=== PATIENT | male | born 1980 | race Caucasian/White ===

== ENCOUNTER 2016-12-10 19:28 | Emergency (ER) | payer OTHER ==
[~2016-12-10] VITALS: Ht 175.3 cm; Wt 74.0 kg
[~2016-12-10 19:28] MED LIST: PRIL20CA PO; TRAM50TA PO; VENL75 PO; Z.0.NO CURRENT MEDS
[2016-12-10 19:32] VITALS: BP 120/72; PULSE 88; RESP 16; TEMP 98.2; O2SAT 97
[2016-12-10] MEDS ORDERED: AMPH1TAB40 PO (20:07)
[2016-12-10] MEDS ORDERED: PERC5TAB12 PO (20:08)
[2016-12-10] MEDS ORDERED: SODIUM CHLOR 0.9% 1000 ML INJ 1,000 ML IV SCH (20:24)
[2016-12-10] MEDS ORDERED: ONDANSETRON HCL 4 MG/2 ML VIAL IVP ONE (20:30)
[2016-12-10] MEDS ORDERED: SODIUM CHLORIDE 0.9% FLUSH 5 ML FLUSH IVF PRN (20:30)
[2016-12-10] MEDS ORDERED: MORPHINE SULFATE 4 MG/ML INJ IV PUSH ONE (20:30)
[2016-12-10] MEDS ORDERED: LIDOCAINE HCL 2% JELLY 5 ML SYRINGE TOPICAL ONE (20:30)
[2016-12-10 20:32] VITALS: RESP 16; O2SAT 98
[2016-12-10 20:58] LABS: AUTOMATED NEUTROPHIL # 3.7 TH/MM3 (1.8-7.7); BASOPHIL # 0.1 TH/MM3 (0-0.2); BASOPHIL % 0.9 % (0.0-2.0); EOSINOPHIL # 0.2 TH/MM3 (0-0.4); EOSINOPHIL % 2.4 % (0.0-4.0); HEMO FLAGS DIFF FINAL; LYMPH % 27.5 % (9.0-44.0); LYMPHOCYTE # 1.8 TH/MM3 (1.0-4.8); MEAN CELL VOLUME 87.4 FL (80.0-100.0); MEAN CORPUSCULAR HGB CONC 34.3 % (32.0-36.0); MONO % 12.5 % (0.0-8.0); NEUT % 56.7 % (16.0-70.0); PLATELET COUNT 182 TH/MM3 (150-450); RED BLOOD COUNT 4.35 MIL/MM3 (4.50-5.90); RED CELL DISTRIBUTION WIDTH 13.2 % (11.6-17.2); WHITE BLOOD COUNT 6.6 TH/MM3 (4.0-11.0)
[2016-12-10] MEDS ORDERED: IOHEXOL 350 MG/ML 10 ML VIAL (for RAD DIAG) IV ONE (20:59)
[2016-12-10 21:09] LABS: APTT (PATIENT) 29.4 SEC (24.3-30.1); INTERNATIONAL NORMALIZED RATIO 0.9 RATIO; PROTHROMBIN TIME - PATIENT 10.3 SEC (9.8-11.6)
[2016-12-10 21:16] VITALS: RESP 16
--- NOTE | 2016-12-10 21:18 | RADRPT ---
EXAM DATE/TIME: 12/10/2016 20:53 [place] COMPARISON: No previous studies available for comparison. INDICATIONS : Lower abdominal pain. IV CONTRAST: 100 cc Omnipaque 350 (iohexol) IV ORAL CONTRAST: No oral contrast ingested. RADIATION DOSE: 6.66 CTDIvol (mGy) MEDICAL HISTORY : Renal calculi. SURGICAL HISTORY : None. ENCOUNTER: Initial ACUITY: 1 day PAIN SCALE: 5/10 LOCATION: lower quadrant abdomen TECHNIQUE: Volumetric scanning of the abdomen and pelvis was performed. Using automated exposure control and adjustment of the mA and/or kV according to patient size, radiation dose was kept as low as reasonably achievable to obtain optimal diagnostic quality images. FINDINGS: LOWER LUNGS: The visualized lower lungs are clear. LIVER: Homogeneous density without lesion. There is no dilation of the biliary tree. No calcifi ed gallstones. SPLEEN: Normal size without lesion. PANCREAS: Within normal limits. KIDNEYS: Normal in size and shape. There is no mass, stone or hydronephrosis. ADRENAL GLANDS: Within normal limits. VASCULAR: There is no aortic aneurysm. BOWEL/MESENTERY: The stomach, small bowel, and colon demonstrate no acute abnormality. There is no free intraperitoneal air or fluid. ABDOMINAL WALL: Within normal limits. RETROPERITONEUM: There is no lymphadenopathy. BLADDER: No wall thickening or mass. REPRODUCTIVE: Within normal limits. INGUINAL: There is no lymphadenopathy or hernia. MUSCULOSKELETAL: Within normal limits for patient age. CONCLUSION: Negative for acute process. I do not see renal stones. I do not see an etiology for patient's abdominal pain. Pascual Juarez MD FACR on December 10, 2016 at 21:15 Board Certified Radiologist. This report was verified electronically.
[2016-12-10 21:34] LABS: ANION GAP 7 MEQ/L (5-15); AST (GOT) 12 U/L (15-37); BICARBONATE 25.4 MEQ/L (21.0-32.0); BLOOD UREA NITROGEN 12 MG/DL (7-18); CHLORIDE 107 MEQ/L (98-107); GLOMERULAR FILTRATION RATE 115 ML/MIN (>89); POTASSIUM 4.1 MEQ/L (3.5-5.1); SODIUM (NA) 139 MEQ/L (136-145)
[2016-12-10 21:37] LABS: ALKALINE PHOSPHATASE 91 U/L (45-117); ALT (GPT) 21 U/L (12-78); TOTAL BILIRUBIN ADULT 0.3 MG/DL (0.2-1.0)
[2016-12-10] MEDS ORDERED: COLA100C3 PO (22:08)
[2016-12-10] MEDS ORDERED: LIDO2GEL11 TOPICAL (22:08)
--- NOTE | 2016-12-10 22:09 | PD ---
HPI Chief Complaint: GI Complaint Time Seen by Provider: 20:03 Travel History International Travel<30 days: No Contact w/Intl Traveler<30days: No Traveled to known affect area: No History of Present Illness HPI Patient is a 36 year old male who comes in complaining of abdominal pain and hemorrhoid pain. He has an appointment with his doctor on Wednesday, but says he couldn't stand the pain, so he came in. He says he has had the hemorrhoids for a while, but they feels that they've been getting bigger, more painful, has been bleeding more. He says he has been feeling constipated, and has not had a bowel movement in a few days. He says he has small bowel movement yesterday that started out hard and then was soft. He denies nausea or vomiting. He has been taking prune juice and magnesium to help him have a bowel movement. He denies fever or chills. PFSH Past Medical History Diminished Hearing: No Kidney Stones: Yes Musculoskeletal: Yes (BACK AND NECK PROBLEMS) Immunizations Current: Yes Tetanus Vaccination: < 5 Years Influenza Vaccination: No Past Surgical History Surgical History: No Previous Surgery Social History Alcohol Use: No Tobacco Use: Yes (1 PACK EVERY 2-3 DAYS.) Substance Use: No Allergies-Medications (Allergen,Severity, Reaction): Coded Allergies: No Known Allergies (Verified , 12/10/16) Reported Meds & Prescriptions Reported Meds & Active Scripts Active Colace (Docusate Sodium) 100 Mg Cap 100 Mg PO BID PRN Lidocaine Topical (Lidocaine HCl) 2 % Jel 1 Applic TOPICAL ONCE Reported Percocet (Oxycodone-Acetaminophen) 5-325 mg Tab 1 Tab PO Q4H PRN Adderall (Amphetamine-Dextroamphetamine) 7.5 Mg Tab 7.5 Mg PO BID Avoid late evening doses. Space doses at least 4 to 6 hours if more than once/day dosing. Review of Systems Except as stated in HPI: all other systems reviewed are Neg General / Constitutional: No: Fever, Chills HENT: No: Headaches, Lightheadedness Cardiovascular: No: Chest Pain or Discomfort Respiratory: No: Shortness of Breath Gastrointestinal: Positive: Abdominal Pain, Constipation, No: Nausea, Vomiting Skin: No Rash, No Change in Pigmentation Physical Exam Narrative GENERAL: Awake and alert in no acute distress. SKIN: Warm and dry. HEAD: Atraumatic. Normocephalic. EYES: Pupils equal and round. No scleral icterus. No injection or drainage. ENT: Mucous membranes pink and moist. NECK: Trachea midline. No JVD. CARDIOVASCULAR: Regular rate and rhythm. No murmur appreciated. RESPIRATORY: No accessory muscle use. Clear to auscultation. Breath sounds equal bilaterally. GASTROINTESTINAL: Abdomen soft, non-tender, nondistended. Hepatic and splenic margins not palpable. RECTAL: large, pink, soft hemorrhoids. No active bleeding. MUSCULOSKELETAL: No obvious deformities. No clubbing. No cyanosis. No edema. NEUROLOGICAL: Awake and alert. No obvious cranial nerve deficits. Motor grossly within normal limits. Normal speech. PSYCHIATRIC: Appropriate mood and affect; insight and judgment normal. Data Data Last Documented VS Vital Signs Date Time Temp Pulse Resp B/P Pulse Ox O2 Delivery O2 Flow Rate FiO2 12/10/16 21:16 16 12/10/16 20:32 98 Room Air 12/10/16 19:32 98.2 88 120/72 Orders Complete Blood Count With Diff (12/10/16 20:24) Comprehensive Metabolic Panel (12/10/16 20:24) Lipase (12/10/16 20:24) Prothrombin Time / Inr (Pt) (12/10/16 20:24) Act Partial Throm Time (Ptt) (12/10/16 20:24) Ct Abd/Pel W Iv Contrast(Rout) (12/10/16 20:24) Iv Access Insert/Monitor (12/10/16 20:24) Ecg Monitoring (12/10/16 20:24) Oximetry (12/10/16 20:24) Morphine Inj (Morphine Inj) (12/10/16 20:30) Ondansetron Inj (Zofran Inj) (12/10/16 20:30) Sodium Chlor 0.9% 1000 Ml Inj (Ns 1000 M (12/10/16 20:24) Sodium Chloride 0.9% Flush (Ns Flush) (12/10/16 20:30) Lidocaine 2% Jelly (Xylocaine 2% Jelly) (12/10/16 20:30) Iohexol 350 Inj (Omnipaque 350 Inj) (12/10/16 20:59) Labs Laboratory Tests Test 12/10/16 20:30 White Blood Count 6.6 TH/MM3 Red Blood Count 4.35 MIL/MM3 Hemoglobin 13.0 GM/DL Hematocrit 38.0 % Mean Corpuscular Volume 87.4 FL Mean Corpuscular Hemoglobin 30.0 PG Mean Corpuscular Hemoglobin 34.3 % Concent Red Cell Distribution Width 13.2 % Platelet Count 182 TH/MM3 Mean Platelet Volume 7.7 FL Neutrophils (%) (Auto) 56.7 % Lymphocytes (%) (Auto) 27.5 % Monocytes (%) (Auto) 12.5 % Eosinophils (%) (Auto) 2.4 % Basophils (%) (Auto) 0.9 % Neutrophils # (Auto) 3.7 TH/MM3 Lymphocytes # (Auto) 1.8 TH/MM3 Monocytes # (Auto) 0.8 TH/MM3 Eosinophils # (Auto) 0.2 TH/MM3 Basophils # (Auto) 0.1 TH/MM3 CBC Comment DIFF FINAL Differential Comment Prothrombin Time 10.3 SEC Prothromb Time International 0.9 RATIO Ratio Activated Partial 29.4 SEC Thromboplast Time Sodium Level 139 MEQ/L Potassium Level 4.1 MEQ/L Chloride Level 107 MEQ/L Carbon Dioxide Level 25.4 MEQ/L Anion Gap 7 MEQ/L Blood Urea Nitrogen 12 MG/DL Creatinine 0.76 MG/DL Estimat Glomerular Filtration 115 ML/MIN Rate Random Glucose 85 MG/DL Calcium Level 8.3 MG/DL Total Bilirubin 0.3 MG/DL Aspartate Amino Transf 12 U/L (AST/SGOT) Alanine Aminotransferase 21 U/L (ALT/SGPT) Alkaline Phosphatase 91 U/L Total Protein 7.7 GM/DL Albumin 3.4 GM/DL Lipase 114 U/L [facility] Medical Decision Making Medical Screen Exam Complete: Yes Emergency Medical Condition: Yes Differential Diagnosis Constipation vs diverticulitis vs colitis vs hemorrhoid Narrative Course Patient is a 36 year old male complaining of abdominal pain, hemorrhoid pain. Abdomen is soft, nontender. Hemorrhoids are soft, pink. IV established, labs sent. Labs show no acute abnormalities. CT abdomen and pelvis performed shows no acute abnormalities. Patient given topical lidocaine with relief of his hemorrhoid pain. Given morphine. Given IV fluids. Reports feeling much better. We'll discharge with prescription for topical lidocaine, Colace, milk of magnesia. Patient advised to follow-up with his doctors as scheduled. Advised to return to the ED as needed for any worsening symptoms. Diagnosis Primary Impression: Hemorrhoids Qualified Code: K64.9 - Hemorrhoids, unspecified hemorrhoid type Additional Impression: Constipation Qualified Code: K59.09 - Other constipation Patient Instructions: Constipation (ED), General Instructions, Hemorrhoids (ED) Additional Instructions: Follow up with your doctors. Use the lidocaine as needed for hemorrhoid pain. Be careful with narcotic pain medicine as it will increase constipation. Scripts Docusate Sodium (Colace)100 Mg [id number] Mg PO BID PRN (Constipation) #20 CAP Ref 0 Prov:Kelli Franklin MD 12/10/16 Lidocaine Topical 2 % Jel1 Applic TOPICAL ONCE #1 GM Ref 0 Prov:Kelli Franklin MD 12/10/16 Disposition: 01 DISCHARGE HOME Condition: Stable Kelli Franklin MD Dec 10, 2016 22:08
== END 2016-12-10 22:39 | disposition home or self-care (01) ==
LOC: NEPC 19:28
DX: K64.9 Unspecified hemorrhoids (principal); K59.00 Constipation, unspecified; F17.210 Nicotine dependence, cigarettes, uncomplicated
CPT/HCPCS: 74177; 80053; 83690; 85025; 85610; 85730; 96361; 96374; 96375; 99284; J2270; J2405; J7030; Q9967

== ENCOUNTER 2017-04-26 23:17 | Emergency (ER) | payer SELFPAY ==
[~2017-04-26] VITALS: Ht 175.3 cm; Wt 73.4 kg
[~2017-04-26 23:17] MED LIST changes: +AMPH1TAB40 PO; +COLA100C3 PO; +LIDO2GEL11 TOPICAL; +PERC5TAB12 PO; -PRIL20CA PO; -TRAM50TA PO; -VENL75 PO; -Z.0.NO CURRENT MEDS
[2017-04-26 23:28] VITALS: BP 116/80; PULSE 102; RESP 14; TEMP 98.3; O2SAT 98
== END 2017-04-26 23:33 | disposition left against medical advice (07) ==
LOC: PHED 23:17
DX: R21 Rash and other nonspecific skin eruption (principal); Z53.21 Procedure and treatment not carried out due to patient leaving prior to being seen by health care provider
CPT/HCPCS: 99281

== ENCOUNTER 2017-05-09 21:59 | Emergency (ER) | payer SELFPAY ==
[~2017-05-09] VITALS: Ht 175.3 cm; Wt 77.0 kg
[2017-05-09 22:03] VITALS: BP 111/74; PULSE 84; RESP 16; TEMP 98.5; O2SAT 96
[2017-05-09] MEDS ORDERED: EMTR1TAB4 PO (23:46)
[2017-05-09] MEDS ORDERED: LISD40 PO (23:46)
[2017-05-09] MEDS ORDERED: LAMO150T PO (23:46)
[2017-05-09] MEDS ORDERED: DOLU1TAB PO (23:46)
--- NOTE | 2017-05-10 00:14 | PD ---
HPI Chief Complaint: ENT Complaint Time Seen by Provider: 00:08 Travel History International Travel<30 days: No Contact w/Intl Traveler<30days: No Traveled to known affect area: No History of Present Illness HPI 37-year-old white male presents to emergency department with complaints of sore throat and congestion after driving home from [place] today. He states that he is living in a new home. He has had problems of this nature after coming back home in the past. He is concerned that he may have a minimal exposure to mold. He has people coming out tomorrow for investigation. He denies any fever chills. He denies any ear pain, cough, shortness of breath, wheezing, nausea, vomiting, diarrhea. The patient does note that he was recently diagnosed with HIV. He does not know what his viral load or CD4 is. Currently on antivirals. PFSH Past Medical History Narrative Medical HIV positive, Hunter's esophagitis Diminished Hearing: No Kidney Stones: Yes Medical other: Yes (HIV) Musculoskeletal: Yes (BACK AND NECK PROBLEMS) Immunizations Current: Yes Tetanus Vaccination: < 5 Years Past Surgical History Surgical History: No Previous Surgery Social History Alcohol Use: Yes (rare) Tobacco Use: Yes (1 PACK EVERY 2-3 DAYS.) Substance Use: No Allergies-Medications (Allergen,Severity, Reaction): Coded Allergies: No Known Allergies (Verified , 12/10/16) Reported Meds & Prescriptions Reported Meds & Active Scripts Active Reported Lamotrigine 150 Mg Tab 150 Mg PO DAILY Vyvanse (Lisdexamfetamine Dimesylate) 40 Mg Cap 40 Mg PO DAILY Descovy (Emtricitabine-Tenofovir Alafenamide) 200-25 mg Tab 1 Tab PO DAILY Tivicay (Dolutegravir Sodium) 50 Mg Tab 50 Mg PO DAILY Percocet (Oxycodone-Acetaminophen) 5-325 mg Tab 1 Tab PO Q4H PRN Adderall (Amphetamine-Dextroamphetamine) 7.5 Mg Tab 7.5 Mg PO BID Avoid late evening doses. Space doses at least 4 to 6 hours if more than once/day dosing. Review of Systems Except as stated in HPI: all other systems reviewed are Neg Physical Exam Narrative GENERAL: Well-nourished, well-developed patient. SKIN: Focused skin assessment warm/dry. HEAD: Normocephalic. EYES: No scleral icterus. No injection or drainage. ENT: Patient's posterior pharynx is erythematous and there are some mild edema of the soft tissue as well as the uvula. NECK: Supple, trachea midline. No JVD or lymphadenopathy. CARDIOVASCULAR: Regular rate and rhythm without murmurs, gallops, or rubs. RESPIRATORY: Breath sounds equal bilaterally. No accessory muscle use. GASTROINTESTINAL: Abdomen soft, non-tender, nondistended. MUSCULOSKELETAL: No cyanosis, or edema. BACK: Nontender without obvious deformity. No CVA tenderness. Data Data Last Documented VS Vital Signs Date Time Temp Pulse Resp B/P Pulse Ox O2 Delivery O2 Flow Rate FiO2 05/09/17 22:03 98.5 84 16 111/74 96 Room Air Orders Group A Rapid Strep Screen (05/09/17 23:56) Strep Culture (Group A) (05/10/17 00:10) MDM Medical Decision Making Medical Screen Exam Complete: Yes Emergency Medical Condition: Yes Medical Record Reviewed: Yes Interpretation(s) Rapid strep: Negative Differential Diagnosis MDM: High Differential diagnoses: Strep throat, viral pharyngitis, allergic reaction, mold Narrative Course Patient's rapid strep is negative. Patient will be treated for possible allergic versus viral URI. Patient is given prednisone 40 mg by mouth. Diagnosis Primary Impression: Allergic rhinitis Qualified Code: J30.9 - Acute allergic rhinitis, unspecified seasonality, unspecified trigger Patient Instructions: General Instructions Additional Instructions: Rest. Increase fluids. Adrianne-D. Prednisone. Saltwater gargles. Follow-up with a medical doctor in one week. Return to the ER for emergencies. Med/Other Pt SpecificInfo: Prescription(s) given Scripts Fexofenadine-Pseudoephedrine ER 24 HR (Adrianne-D 24 Hour Allergy)180-240 Taber1 Tab PO DAILY #14 TAB Ref 0 Prov:Mahamed Nam MD 05/10/17 Prednisone (Deltasone)20 Mg Tab20 Mg PO BID #14 TAB Prov:Mahamed Nam MD 05/10/17 Disposition: 01 DISCHARGE HOME Condition: Stable Festus Ravi May 10, 2017 00:14
[2017-05-10] MEDS ORDERED: FEXO1TAB97 PO (00:51)
[2017-05-10] MEDS ORDERED: PRED-503 PO (00:51)
[2017-05-10] MEDS ORDERED: predniSONE 20 MG TAB PO ONE (01:00)
== END 2017-05-10 01:02 | disposition home or self-care (01) ==
LOC: NEPD 21:59
DX: J30.9 Allergic rhinitis, unspecified (principal); R09.81 Nasal congestion; F17.200 Nicotine dependence, unspecified, uncomplicated
CPT/HCPCS: 87081; 87880; 99283; J7512